=== PATIENT | female | born 1965 | race Caucasian/White ===

== ENCOUNTER 2017-04-11 17:20 | Emergency (ER) | payer SELFPAY ==
[~2017-04-11 17:20] MED LIST: BUSP5 PO; DICL75 PO; DILA2TAB4 PO; FERR325T PO; MULT-65 PO; NORV100C OR; RALT400 OR; REYA150C4 PO; TRUVTAB2 OR
[2017-04-11 17:35] VITALS: BP 134/99; PULSE 106; RESP 20; TEMP 98.1; O2SAT 99
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
== END 2017-04-11 19:09 | disposition home or self-care (01) ==
LOC: NEDAMB 17:20
DX: F10.920 Alcohol use, unspecified with intoxication, uncomplicated (principal)
CPT/HCPCS: 99283